=== PATIENT | female | born 1945 | race Two or more races ===

== ENCOUNTER 2020-10-10 04:08 | Emergency (ER) | payer BC ==
[~2020-10-10] VITALS: Ht 175.3 cm; Wt 72.6 kg
[2020-10-10 06:06] LABS: Hematocrit 40.7 % (36.0-46.0); Hemoglobin 14.1 g/dL (12.2-16.2); Mean Corpuscular Hgb Conc. 34.7 g/dL (32.0-36.0); Mean Corpuscular Volume 89.4 fL (80.0-100.0); Red Blood Cells 4.56 10^6/uL (4.0-5.20); Red Cell Distribution Width 13.8 % (11.8-14.3); White Blood Cell 8.2 10^3/uL (4.4-10.8)
[2020-10-10 06:22] LABS: Albumin 3.9 g/dL (3.4-5.0); Amylase 72 U/L (25-115); Anion Gap 7 (5-15); Blood Urea Nitrogen 29 mg/dL (7-18); Calcium 8.8 mg/dL (8.5-10.1); Carbon Dioxide 25 mmol/L (21-32); Chloride 112 mmol/L (98-107); Glucose 113 mg/dL (74-106); Lipase 104 U/L (73-393); Magnesium 2.1 mg/dL (1.6-2.6); Partial Thromboplastin Time 22.2 sec (23.0-31.2); Potassium 3.5 mmol/L (3.5-5.1); Sodium 144 mmol/L (136-145)
[2020-10-10 06:24] LABS: Basophils % (manual) 0 (0.0-2.0); Blast Cells 0; Eosinophils % (manual) 0 (0-7); Metamyelocytes % 0; Myelocytes % 0; Promyelocytes % 0; Reactive Lymphocytes 0
[2020-10-10 06:30] LABS: Alanine Aminotransferase 29 U/L (13-56); Alkaline Phosphatase 82 U/L (45-117); Aspartate Aminotransferase 29 U/L (15-37); BUN/Creatinine Ratio 29.6; Bilirubin, Total 0.8 mg/dL (0.2-1.0); GFR African American 71 mL/min; GFR Non-African American 59 mL/min; Total Protein 7.1 g/dL (6.4-8.2)
[2020-10-10] MEDS ORDERED: fentaNYL CITRATE 100 MCG/2 ML VL IV ONE (06:30)
[2020-10-10] MEDS ORDERED: ONDANSETRON HCL 4 MG/2 ML VIAL IV ONE (06:30)
[2020-10-10 07:04] LABS: Band Neutrophils % (manual) 3; Lymphocytes % (manual) 4 (10.0-50.0); Monocytes % (manual) 2 (0-12)
[2020-10-10] MEDS ORDERED: SODIUM CHLORIDE 0.9% 1,000 ML IV ONE (07:15)
[2020-10-10 08:55] LABS: Urine Amorphous Crystal FEW /hpf (None Seen); Urine Bacteria NONE SEEN /hpf (None Seen); Urine Blood Negative /uL (Negative); Urine WBC 3 /hpf (0 - 5)
[2020-10-10 09:00] VITALS: BP 105/53
== END 2020-10-10 10:09 | disposition home or self-care (01) ==
LOC: ER 04:08 → EDBD 04:08 → ER 09:49
DX: K52.9 Noninfective gastroenteritis and colitis, unspecified (principal); K90.49 Malabsorption due to intolerance, not elsewhere classified; E11.9 Type 2 diabetes mellitus without complications; E78.5 Hyperlipidemia, unspecified; Z90.710 Acquired absence of both cervix and uterus
CPT/HCPCS: 36415; 71045; 74176; 80053; 81001; 82150; 83690; 83735; 84443; 84484; 85007; 85027; 85049; 85610; 85730; 93005; 96361; 96374; 96375; 99285; J2405; J3010; J7030

== ENCOUNTER 2020-10-18 18:18 | Inpatient (IN) | payer BC ==
[~2020-10-18] VITALS: Ht 152.4 cm; Wt 58.7 kg
[2020-10-18 19:02] LABS: Basophils # (auto) 0 10 ^3/uL (0-0.2); Basophils % (auto) 0.2 % (0.0-2.0); Eosinophils # (auto) 0 10 ^3/uL (0-0.8); Hemoglobin 13.6 g/dL (12.2-16.2); Lymphocytes # (auto) 0.8 10 ^3/uL (0.4-5.4); Lymphocytes % (auto) 5.7 % (10.0-50.0); Mean Corpuscular Hemoglobin 29.2 pg (28.0-32.0); Mean Corpuscular Hgb Conc. 33.2 g/dL (32.0-36.0); Mean Corpuscular Volume 87.9 fL (80.0-100.0); Monocytes # (auto) 0.3 10 ^3/uL (0-1.3); Monocytes % (auto) 2.5 % (0.0-12.0); Neutrophils # (auto) 12.6 10 ^3/uL (1.6-8.6); Neutrophils % (auto) 91.6 % (37.0-80.0); Red Blood Cells 4.67 10^6/uL (4.0-5.20); Red Cell Distribution Width 13.5 % (11.8-14.3); White Blood Cell 13.8 10^3/uL (4.4-10.8)
[2020-10-18 19:21] LABS: Albumin 3.4 g/dL (3.4-5.0); Calcium 9.4 mg/dL (8.5-10.1); Potassium 4.4 mmol/L (3.5-5.1)
[2020-10-18 19:24] LABS: BUN/Creatinine Ratio 20.7; Bilirubin, Total 0.8 mg/dL (0.2-1.0); Total Protein 7.2 g/dL (6.4-8.2)
[2020-10-18 19:50] LABS: INR 1.1 (0.9-1.15)
[2020-10-18] MEDS ORDERED: IOHEXOL 300 MG/ML 100ML BOTTLE IJ ONE (21:25)
[2020-10-18 22:33] LABS: Urine Bacteria FEW /hpf (None Seen); Urine Blood 1+ /uL (Negative); Urine Mucus FEW (None Seen); Urine Specific Gravity 1.026 (1.001-1.035); Urine WBC 2 /hpf (0 - 5)
[2020-10-19] MEDS ORDERED: PIPERACILLIN-TAZOB 3.375GM 100 ML IV ONE (02:00)
[2020-10-19] MEDS ORDERED: fentaNYL CITRATE 100 MCG/2 ML VL IM ONE (02:00)
[2020-10-19] MEDS ORDERED: SODIUM CHLORIDE 0.9% 1,000 ML IV ONE (02:00)
[2020-10-19] MEDS ORDERED: ONDANSETRON HCL 4 MG/2 ML VIAL IV ONE (02:00)
[2020-10-19] MEDS ORDERED: NITROGLYCERIN 0.4 MG SL TAB SL PRN (03:15)
[2020-10-19] MEDS: SODIUM CHLORIDE 0.9% 1,000 ML IV SCH ×2 (03:15→14:22)
[2020-10-19] MEDS ORDERED: MORPHINE SULFATE INJECTION 2 MG/ML SYRG IV PRN (03:15)
[2020-10-19] MEDS: MORPHINE SULFATE 4 MG/ML SYR/VIAL IV PRN (03:53)
[2020-10-19] MEDS: metroNIDAZOLE 500MG/100ML 100 ML IV SCH ×3 (06:00→22:00)
[2020-10-19] MEDS ORDERED: SUCCINYLCHOLINE CHLORIDE 20 MG/ML 10ML VIAL IV ONE (07:05)
[2020-10-19] MEDS ORDERED: LIDOCAINE 1% HCL (LOCAL ANESTH.) INJ 20ML MDV ONE (07:05)
[2020-10-19] MEDS ORDERED: ETOMIDATE (2MG/ML) 20ML VIAL IV ONE (07:15)
[2020-10-19] MEDS ORDERED: fentaNYL CITRATE 5 ML ONE (07:15)
[2020-10-19] MEDS ORDERED: fentaNYL CITRATE 100 MCG/2 ML VL ONE (07:15)
[2020-10-19] MEDS ORDERED: PROPOFOL 10 MG/ML 20 ML IV ONE (07:15)
[2020-10-19] MEDS ORDERED: ONDANSETRON HCL 4 MG/2 ML VIAL ONE (07:15)
[2020-10-19] MEDS ORDERED: SODIUM CHLORIDE LOCK 10 ML ONE (07:15)
[2020-10-19] MEDS ORDERED: HYDROmorphone HCL 2 MG/ML VL ONE (07:15)
[2020-10-19] MEDS ORDERED: MIDAZOLAM HCL 2MG/2ML 2ml VIAL (1mg/ml) ONE (07:15)
[2020-10-19] MEDS ORDERED: ROCURONIUM 10MG/ML 10ML VIAL IV ONE ×2 (07:15→08:59)
[2020-10-19] MEDS ORDERED: metroNIDAZOLE 500MG/100ML 100 ML IV ONE (07:31)
[2020-10-19] MEDS ORDERED: MORPHINE SULFATE 4 MG/ML SYR/VIAL IV PRN (07:45)
[2020-10-19] MEDS ORDERED: METOCLOPRAMIDE HCL 5MG/ml INJ 2ml VIAL IV PRN (07:45)
[2020-10-19] MEDS ORDERED: HYDROmorphone HCL 2 MG/ML VL IV PRN (07:45)
[2020-10-19] MEDS ORDERED: GLYCOPYRROLATE 0.2 MG/ML 1ML VIAL ONE (09:05)
[2020-10-19] MEDS ORDERED: NEOSTIGMINE 1 MG/ML INJ (10mg/10ML VIAL) ONE (09:05)
[2020-10-19] MEDS ORDERED: ceFAZolin 1GM VL ONE (09:23)
[2020-10-19] MEDS ORDERED: ACETAMINOPHEN IV 100 ML IV ONE (10:41)
[2020-10-19] MEDS ORDERED: ACETAMINOPHEN IV 1000 MG/100ML (10MG/ML) IV ONE (10:45)
[2020-10-19] MEDS: PANTOPRAZOLE 40 MG/10 ML VIAL INJ IV SCH (11:30)
[2020-10-19] MEDS: PIPERACILLIN-TAZOB 3.375GM 100 ML IV SCH ×3 (13:58→22:01)
[2020-10-19] MEDS ORDERED: MET500T PO (15:07)
[2020-10-19] MEDS ORDERED: LEV25T PO (15:07)
[2020-10-19] MEDS ORDERED: CIPR500T4 PO (15:07)
[2020-10-19] MEDS ORDERED: METO10TA3 PO (15:07)
[2020-10-19] MEDS ORDERED: TRAM50TA2 PO (15:07)
[2020-10-19 17:00] VITALS: BP 96/54
[2020-10-19] MEDS ORDERED: PRAV20TA3 PO (17:23)
[2020-10-19 20:00] VITALS: BP 105/61
[2020-10-19 21:47] VITALS: BP 105/61
[2020-10-20] MEDS: SODIUM CHLORIDE 0.9% 1,000 ML IV SCH ×3 (01:40→23:43)
[2020-10-20] MEDS: ONDANSETRON HCL 4 MG/2 ML VIAL IV PRN (02:29)
[2020-10-20] MEDS: MORPHINE SULFATE 4 MG/ML SYR/VIAL IV PRN ×3 (02:49→16:35)
[2020-10-20 05:11] VITALS: BP 109/60
[2020-10-20] MEDS: metroNIDAZOLE 500MG/100ML 100 ML IV SCH (05:59)
[2020-10-20] MEDS: PIPERACILLIN-TAZOB 3.375GM 100 ML IV SCH ×3 (06:18→22:20)
[2020-10-20 06:46] LABS: Basophils # (auto) 0 10 ^3/uL (0-0.2); Basophils % (auto) 0.1 % (0.0-2.0); Eosinophils # (auto) 0 10 ^3/uL (0-0.8); Hematocrit 32.7 % (36.0-46.0); Hemoglobin 11.3 g/dL (12.2-16.2); Lymphocytes # (auto) 0.9 10 ^3/uL (0.4-5.4); Lymphocytes % (auto) 6.1 % (10.0-50.0); Mean Corpuscular Hemoglobin 30.3 pg (28.0-32.0); Mean Corpuscular Hgb Conc. 34.4 g/dL (32.0-36.0); Monocytes # (auto) 0.7 10 ^3/uL (0-1.3); Monocytes % (auto) 4.6 % (0.0-12.0); Neutrophils # (auto) 13.6 10 ^3/uL (1.6-8.6); Neutrophils % (auto) 89.2 % (37.0-80.0); Red Blood Cells 3.72 10^6/uL (4.0-5.20); Red Cell Distribution Width 14.1 % (11.8-14.3); White Blood Cell 15.3 10^3/uL (4.4-10.8)
[2020-10-20 07:05] LABS: Albumin 2.3 g/dL (3.4-5.0); Calcium 7.9 mg/dL (8.5-10.1); Potassium 3.7 mmol/L (3.5-5.1)
[2020-10-20 07:09] LABS: BUN/Creatinine Ratio 26.2; Bilirubin, Total 0.5 mg/dL (0.2-1.0); Total Protein 5.5 g/dL (6.4-8.2)
[2020-10-20 09:00] VITALS: BP 108/62
[2020-10-20] MEDS: PANTOPRAZOLE 40 MG/10 ML VIAL INJ IV SCH (10:33)
[2020-10-20 13:00] VITALS: BP 111/62
[2020-10-20 17:00] VITALS: BP 120/67
[2020-10-20 20:00] VITALS: BP 125/67
[2020-10-21] MEDS: MORPHINE SULFATE 4 MG/ML SYR/VIAL IV PRN (01:42)
[2020-10-21 05:00] VITALS: BP 122/69
[2020-10-21] MEDS: PIPERACILLIN-TAZOB 3.375GM 100 ML IV SCH ×3 (06:00→22:13)
[2020-10-21 09:00] VITALS: BP 125/66
[2020-10-21] MEDS: PANTOPRAZOLE 40 MG/10 ML VIAL INJ IV SCH (10:05)
[2020-10-21 13:00] VITALS: BP 125/66
[2020-10-21] MEDS: SODIUM CHLORIDE 0.9% 1,000 ML IV SCH ×2 (14:09→21:57)
[2020-10-21 17:00] VITALS: BP 127/69
[2020-10-21 22:00] VITALS: BP 136/71
[2020-10-22 05:00] VITALS: BP 131/71
[2020-10-22] MEDS: PIPERACILLIN-TAZOB 3.375GM 100 ML IV SCH ×3 (06:00→22:19)
[2020-10-22 06:58] LABS: Basophils # (auto) 0 10 ^3/uL (0-0.2); Basophils % (auto) 0.4 % (0.0-2.0); Eosinophils # (auto) 0.1 10 ^3/uL (0-0.8); Eosinophils % (auto) 1.2 % (0.0-7.0); Hematocrit 35.7 % (36.0-46.0); Hemoglobin 12.2 g/dL (12.2-16.2); Lymphocytes # (auto) 1.1 10 ^3/uL (0.4-5.4); Lymphocytes % (auto) 13.4 % (10.0-50.0); Mean Corpuscular Hemoglobin 29.8 pg (28.0-32.0); Mean Corpuscular Hgb Conc. 34.3 g/dL (32.0-36.0); Mean Corpuscular Volume 86.9 fL (80.0-100.0); Monocytes # (auto) 0.5 10 ^3/uL (0-1.3); Monocytes % (auto) 6.5 % (0.0-12.0); Neutrophils # (auto) 6.6 10 ^3/uL (1.6-8.6); Neutrophils % (auto) 78.5 % (37.0-80.0); Nucleated Red Blood Cells % 0.1 %; Red Blood Cells 4.11 10^6/uL (4.0-5.20); Red Cell Distribution Width 13.3 % (11.8-14.3); White Blood Cell 8.4 10^3/uL (4.4-10.8)
[2020-10-22 07:29] LABS: BUN/Creatinine Ratio 28.9; Magnesium 2.2 mg/dL (1.6-2.6)
[2020-10-22 07:34] LABS: Potassium 2.9 mmol/L (3.5-5.1)
[2020-10-22] MEDS: PANTOPRAZOLE 40 MG/10 ML VIAL INJ IV SCH (08:31)
[2020-10-22 09:00] VITALS: BP 134/70
[2020-10-22] MEDS: SODIUM CHLORIDE 0.9% 1,000 ML IV SCH ×2 (09:04→20:11)
[2020-10-22] MEDS: POTASSIUM CHL 20MEQ/100ML 100 ML IV SCH ×3 (11:13→15:55)
[2020-10-22 12:36] VITALS: BP 124/75
[2020-10-22 16:59] VITALS: BP 130/66
[2020-10-22 23:13] VITALS: BP 133/78
[2020-10-23 05:34] VITALS: BP 141/80
[2020-10-23] MEDS: PIPERACILLIN-TAZOB 3.375GM 100 ML IV SCH ×3 (05:49→21:21)
[2020-10-23 07:21] LABS: Basophils # (auto) 0.1 10 ^3/uL (0-0.2); Basophils % (auto) 0.7 % (0.0-2.0); Eosinophils # (auto) 0.2 10 ^3/uL (0-0.8); Eosinophils % (auto) 2.8 % (0.0-7.0); Hematocrit 37.5 % (36.0-46.0); Hemoglobin 12.5 g/dL (12.2-16.2); Lymphocytes # (auto) 1.1 10 ^3/uL (0.4-5.4); Lymphocytes % (auto) 14.7 % (10.0-50.0); Mean Corpuscular Hemoglobin 29.2 pg (28.0-32.0); Mean Corpuscular Hgb Conc. 33.4 g/dL (32.0-36.0); Mean Corpuscular Volume 87.6 fL (80.0-100.0); Monocytes # (auto) 0.5 10 ^3/uL (0-1.3); Monocytes % (auto) 7.3 % (0.0-12.0); Neutrophils # (auto) 5.5 10 ^3/uL (1.6-8.6); Neutrophils % (auto) 74.5 % (37.0-80.0); Red Blood Cells 4.28 10^6/uL (4.0-5.20); Red Cell Distribution Width 13.4 % (11.8-14.3); White Blood Cell 7.4 10^3/uL (4.4-10.8)
[2020-10-23 07:43] LABS: Potassium 3.3 mmol/L (3.5-5.1)
[2020-10-23 07:45] LABS: BUN/Creatinine Ratio 25.6; Magnesium 2.2 mg/dL (1.6-2.6)
[2020-10-23 09:00] VITALS: BP 142/77
[2020-10-23] MEDS: SODIUM CHLORIDE 0.9% 1,000 ML IV SCH ×2 (10:50→18:47)
[2020-10-23] MEDS: PANTOPRAZOLE 40 MG/10 ML VIAL INJ IV SCH (10:50)
[2020-10-23] MEDS ORDERED: POTASSIUM CHL 20MEQ/100ML 100 ML IV ONE (11:00)
[2020-10-23 13:00] VITALS: BP 123/68
[2020-10-23 16:43] VITALS: BP 125/77
[2020-10-23 22:00] VITALS: BP 112/69
[2020-10-24 05:00] VITALS: BP 113/71
[2020-10-24] MEDS: SODIUM CHLORIDE 0.9% 1,000 ML IV SCH ×3 (05:32→15:46)
[2020-10-24] MEDS: PIPERACILLIN-TAZOB 3.375GM 100 ML IV SCH ×3 (05:59→22:16)
[2020-10-24 07:00] LABS: Basophils # (auto) 0.1 10 ^3/uL (0-0.2); Basophils % (auto) 0.9 % (0.0-2.0); Eosinophils # (auto) 0.3 10 ^3/uL (0-0.8); Eosinophils % (auto) 4.2 % (0.0-7.0); Hematocrit 36.6 % (36.0-46.0); Hemoglobin 12.5 g/dL (12.2-16.2); Lymphocytes # (auto) 1.2 10 ^3/uL (0.4-5.4); Lymphocytes % (auto) 16.3 % (10.0-50.0); Mean Corpuscular Hemoglobin 29.6 pg (28.0-32.0); Mean Corpuscular Hgb Conc. 34.3 g/dL (32.0-36.0); Mean Corpuscular Volume 86.5 fL (80.0-100.0); Monocytes # (auto) 0.7 10 ^3/uL (0-1.3); Monocytes % (auto) 9.2 % (0.0-12.0); Neutrophils # (auto) 5.3 10 ^3/uL (1.6-8.6); Neutrophils % (auto) 69.4 % (37.0-80.0); Red Blood Cells 4.23 10^6/uL (4.0-5.20); Red Cell Distribution Width 13.5 % (11.8-14.3); White Blood Cell 7.6 10^3/uL (4.4-10.8)
[2020-10-24 07:22] LABS: Magnesium 2.2 mg/dL (1.6-2.6); Potassium 3.5 mmol/L (3.5-5.1)
[2020-10-24 07:24] LABS: BUN/Creatinine Ratio 21.8
[2020-10-24 09:00] VITALS: BP 112/71
[2020-10-24] MEDS: PANTOPRAZOLE 40 MG/10 ML VIAL INJ IV SCH (09:41)
[2020-10-24 13:00] VITALS: BP 110/65
[2020-10-24 17:00] VITALS: BP 120/58
[2020-10-24 22:30] VITALS: BP 109/65
[2020-10-24] MEDS ORDERED: TEMAZEPAM 15 MG CAP PO ONE (22:30)
[2020-10-25] MEDS: SODIUM CHLORIDE 0.9% 1,000 ML IV SCH ×2 (03:46→12:56)
[2020-10-25 05:30] VITALS: BP 116/69
[2020-10-25] MEDS: PIPERACILLIN-TAZOB 3.375GM 100 ML IV SCH ×2 (06:27→13:00)
[2020-10-25 09:00] VITALS: BP 113/66
[2020-10-25] MEDS: PANTOPRAZOLE 40 MG/10 ML VIAL INJ IV SCH (09:29)
[2020-10-25 13:00] VITALS: BP 111/62
[2020-10-25 17:00] VITALS: BP 104/56
[2020-10-25] MEDS: ENOXAPARIN SOD 40 MG/0.4 ML SYRINGE SC SCH (20:40)
[2020-10-25 23:11] VITALS: BP 112/69
[2020-10-26] MEDS: SODIUM CHLORIDE 0.9% 1,000 ML IV SCH (02:37)
[2020-10-26] MEDS: ONDANSETRON HCL 4 MG/2 ML VIAL IV PRN (02:47)
[2020-10-26] MEDS: MORPHINE SULFATE 4 MG/ML SYR/VIAL IV PRN (02:48)
[2020-10-26 05:20] VITALS: BP 100/55
[2020-10-26 05:52] LABS: Basophils # (auto) 0.1 10 ^3/uL (0-0.2); Basophils % (auto) 1.1 % (0.0-2.0); Eosinophils # (auto) 0.3 10 ^3/uL (0-0.8); Eosinophils % (auto) 4.1 % (0.0-7.0); Hemoglobin 11.2 g/dL (12.2-16.2); Lymphocytes # (auto) 1.7 10 ^3/uL (0.4-5.4); Lymphocytes % (auto) 23.4 % (10.0-50.0); Mean Corpuscular Hemoglobin 30.2 pg (28.0-32.0); Mean Corpuscular Hgb Conc. 34.8 g/dL (32.0-36.0); Mean Corpuscular Volume 86.7 fL (80.0-100.0); Monocytes # (auto) 0.8 10 ^3/uL (0-1.3); Monocytes % (auto) 10.7 % (0.0-12.0); Neutrophils # (auto) 4.4 10 ^3/uL (1.6-8.6); Neutrophils % (auto) 60.7 % (37.0-80.0); Red Cell Distribution Width 13.7 % (11.8-14.3); White Blood Cell 7.2 10^3/uL (4.4-10.8)
[2020-10-26 06:21] LABS: Potassium 3.6 mmol/L (3.5-5.1)
[2020-10-26 06:28] LABS: BUN/Creatinine Ratio 17.4; Magnesium 2.2 mg/dL (1.6-2.6)
[2020-10-26 08:30] VITALS: BP 112/80
[2020-10-26] MEDS: ENOXAPARIN SOD 40 MG/0.4 ML SYRINGE SC SCH (09:04)
[2020-10-26] MEDS: PANTOPRAZOLE 40 MG/10 ML VIAL INJ IV SCH (09:04)
[2020-10-26 12:30] VITALS: BP 110/80
== END 2020-10-26 13:20 | disposition home health service (06) | DRG 329 ==
LOC: ER 18:20 → OVERFLOW 10-19 03:08 → TELE-WESTW 10-19 13:21
PROVIDERS: ADMIT Nurse Practitioner; ATTEND Internal Medicine
PROC: 0D1M0Z4 Bypass Descending Colon to Cutaneous, Open Approach (ICD-10-PCS; 2020-10-19)
PROC: 0W9G0ZZ Drainage of Peritoneal Cavity, Open Approach (ICD-10-PCS; 2020-10-19)
PROC: 0DN80ZZ Release Small Intestine, Open Approach (ICD-10-PCS; 2020-10-19)
PROC: 0DTN0ZZ Resection of Sigmoid Colon, Open Approach (ICD-10-PCS; principal; 2020-10-19 07:56)
DX: K57.20 Diverticulitis of large intestine with perforation and abscess without bleeding (principal); K65.1 Peritoneal abscess; K56.50 Intestinal adhesions [bands], unspecified as to partial versus complete obstruction; I31.3 Pericardial effusion (noninflammatory); Z20.822 Contact with and (suspected) exposure to COVID-19; E11.9 Type 2 diabetes mellitus without complications; K52.9 Noninfective gastroenteritis and colitis, unspecified; E03.9 Hypothyroidism, unspecified; E78.5 Hyperlipidemia, unspecified; E87.6 Hypokalemia; E88.09 Other disorders of plasma-protein metabolism, not elsewhere classified; K44.9 Diaphragmatic hernia without obstruction or gangrene; Z85.42 Personal history of malignant neoplasm of other parts of uterus; Z90.710 Acquired absence of both cervix and uterus; Z79.899 Other long term (current) drug therapy
CPT/HCPCS: 36415; 71045; 74177; 80048; 80053; 81001; 83605; 83690; 83735; 85025; 85610; 86850; 86900; 86901; 87040; 87426; 93005; 96365; 96366; 96372; 96375; 97110; 97116; 97163; 97530; C9113; G0378; J0131; J0330; J0690; J2001; J2250; J2405; J2543; J2704; J3480; J3490

== ENCOUNTER 2024-02-18 18:43 | Emergency (ER) | payer BC ==
[~2024-02-18] VITALS: Ht 152.4 cm; Wt 51.0 kg
[~2024-02-18 18:43] MED LIST: LEV25T PO; METO10TA3 PO; PRAV20TA3 PO
[2024-02-18] MEDS ORDERED: ACET500T58 PO (21:17)
[2024-02-18] MEDS ORDERED: AMOX875T4 PO (21:17)
--- NOTE | 2024-02-18 21:17 | ED.PDOC ---
History of Present Illness(SKN HPI Comments 78-year-old female presents to ER with complaints of cat bite to right hand x1 day. Patient reports that her cat who is not up-to-date on vaccines bit her on her right hand this morning and has since been experiencing pain/swelling/redness localized to cat bite of right hand. She reports 8/10 pain to right hand. Denies use of medications for current symptoms. States she is unsure when her last tetanus shot was and presents to ER ambulatory on arrival, with steady gait, in no distress. Denies fever, body aches, chills, b leeding/skin drainage, wrist pain or any further symptoms/complaints Chief Complaint: Animal Bite Time Seen by MD: 19:11 Primary Care Provider: none History of Present Illness: Nurses Notes, Medications, Allergies Allergies: Coded Allergies: NO KNOWN ALLERGIES (Unverified , 10/10/20) Home Meds Active Scripts Amoxicillin & Pot Clavulanate (Amoxicillin/Potassium Cla) 875 Mg Tab, 1 TAB PO BID for 7 Days, #14 TAB 0 Refills Prov:ISABEL CHACKO 02/18/24 Acetaminophen (Acetaminophen) 500 Mg Tab, 500 MG PO Q4HPRN, #30 TAB 0 Refills Prov:ISABEL CHACKO 02/18/24 Reported Medications Pravastatin Sodium (PRAVACHOL TABLET) 20 Mg Tb, 1 TAB PO DAILY, #30 TAB 5 Refills 10/19/20 Levothyroxine Sodium (Levothyroxine Sodium) 25 Mcg Tab, 1 TAB PO QAM 10/19/20 Metoclopramide Hcl (Metoclopramide Hcl) 10 Mg Tab, 1 TAB PO BID 10/19/20 Information Source: Patient Mode of Arrival: Ambulatory Tetanus: Unknown Past Medical History PAST MEDICAL HISTORY: DM, High Lipids, Thyroid, UTI'S Surgical History: Hysterectomy [employer] History: Endometrial Cancer, Endometriosis Family History Family History: Unknown Social History Smoker: Non-Smoker Alcohol: Denies ETOH Use Drugs: Denies Drug Use Lives In: Home Constitutional: denies: chills, diaphoresis, fatigue, fever, malaise, sweats, weakness, others EENTM: denies: blurred vision, double vision, ear bleeding, ear discharge, ear drainage, ear pain, ear ringing, eye pain, eye redness, hearing loss, mouth pain, mouth swelling, nasal discharge, nose bleeding, nose congestion, nose pain, photophobia, tearing, throat pain, throat swelling, voice changes, others Respiratory: denies: cough, hemoptysis, orthopnea, SOB at rest, shortness of breath, SOB with excertion, stridor, wheezing, others Cardiovascular: denies: chest pain, dizzy spells, diaphoresis, Dyspnea on exertion, edema, irregular heart beat, left arm pain, lightheadedness, palpitations, PND, syncope, others Gastrointestinal: denies: abdomen distended, abdominal pain, blood streaked bowels, constipated, diarrhea, dysphagia, difficulty swallowing, hematemesis, melena, nausea, poor appetite, poor fluid intake, rectal bleeding, rectal pain, vomiting, others Genitourinary: denies: abnormal vagina bleeding, burning, dyspareunia, dysuria, flank pain, frequency, hematuria, incontinence, pain, , vagina discharge, urgency, others Neurological: denies: dizziness, fainting, headache, left sided numbness, left sided weakness, numbness, paresthesia, pre-existing deficit, right sided numbness, right sided weakness, seizure, speech problems, tingling, tremors, weakness, others Musculoskeletal: denies: back pain, gout, joint pain, joint swelling, muscle pain, muscle stiffness, neck pain, others Integumetry: reports: others (As stated in HPI) Allergic/Immunocompromised: denies: Difficulty Healing, Frequent Infections, Hives, Itching, others Hematologic/Lymphatic: denies: anemia, blood clots, easy bleeding, easy bruising, swollen glands, others Endocrine: denies: excessive hunger, excessive sweating, excessive thirst, excessive urination, flushing, intolerance to cold, intolerance to heat, unexplained weight gain, unexplained weight loss, others Psychiatric: denies: anxiety, bipolar disorder, depression, hopeless, panic disorder, schizophrenia, sleepless, suicidal, others Physical Exam General Appearance: No Apparent Distress HEENT: PERRL/EOMI Neck: Full Range of Motion, Non-Tender, Normal Respiratory: Chest Non-Tender, Lungs Clear, No Accessory Muscle Use, No Respiratory Distress, Normal Breath Sounds Cardiovascular: No Murmur, No Gallop, Regular Rate/Rhythm Breast Exam: Deferred Gastrointestinal: NOT DONE Genitalia: Deferred Pelvic: Deferred Rectal: Deferred Extremities: Normal capillary refill, Normal range of motion Neurologic: Alert, crane helper II-XII nml as Tested, No Motor Deficits, Normal Affect, Normal Mood, No Sensory Deficits Cerebellar Function: Normal Reflexes: Normal Skin: Dry, Warm Lymphatic: No Adenopathy Was a procedure done? Was a procedure done?: No Sedation Sedation?: No Images 1 - 2 puncture del valle <.5 cm in size noted to dorsal surface of right hand with mild swelling/erythema/TTP. No red streaking/drainage/fluctuance noted. No TTP to right wrist noted Differential Diagnosis (INTG) Differential Diagnosis: Abscess Differential Diagnosis: Open Fracture, Retained Foreign Body X-Ray, Labs, Meds, VS Vital Signs Date Time Temp Pulse Resp B/P (MAP) Pulse Ox O2 Delivery O2 Flow Rate FiO2 02/18/24 21: 78 12 98 Room Air 02/18/24 21:22 97.9 98 12 103/61 (75) 98 97.9 02/18/24 19:06 99.1 82 19 162/92 (115) 97 Current Medications Medications (Trade) Dose Ordered Sig/Kaiden Route Start Time Stop Time Status Last Admin Acetaminophen/ Codeine Phosphate (Tylenol W/Cod #3 Tablet) 1 tab ONCE ONCE PO 02/18/24 21:15 02/18/24 21:16 DC 02/18/24 21:43 Ondansetron HCl (Zofran Po) 4 mg ONCE ONCE PO 02/18/24 21:15 02/18/24 21:16 DC 02/18/24 21:43 Clindamycin Phosphate 50 ml @ 50 mls/hr ONCE ONCE IV 02/18/24 21:15 02/18/24 22:14 DC 02/18/24 21:42 Diphtheria/ Tetanus/Acell Pertussis (Boostrix T-Dap) 0.5 ml ONCE ONCE IM 02/18/24 21:15 02/18/24 21:26 DC 02/18/24 21:42 PATIENT: MYRA PARSONS V ACCT: [id number] UNIT: [id number] : 1945 LOC: ER ROOM / BED: / AGE / SEX: 78 / F ADM STATUS: REG ER SERVICE 08 ORDERING PHYSICIAN: ISABEL CHACKO PROCEDURE(s): RHAN - R HAND 3 VIEW XRAY REASON: right hand pain ORDER NUMBER(s): [id number], ACCESSION NUMBER(s): [id number] CLINICAL INDICATION: right hand pain TECHNIQUE: XY R HAND 3 VIEW XRAY Comparison: None FINDINGS/IMPRESSION: There is no evidence of acute fracture or dislocation. Moderate degenerative changes involving the interphalangeal joints. The alignment is anatomical. There is no radiopaque foreign body. ATED BY: EBA CHRISTENSEN DO DICTATED DATE/TIME: 02/18/242242 SIGNED BY: BEA CHRISTENSEN DO SIGNED DATE/TIME: 02/18/242242 CC: Right hand x-ray reviewed Patient neurovascularly intact Hep-Lock IV ordered Clindamycin 600 mg IV ordered Tdap 0.5 mL IM ordered Tylenol # 3 one tablet p.o. ordered Zofran 4 mg p.o. ordered Wound cleaning performed at bedside Wound care/cleaning discussed and advised Advised on rest/ no strenuous activity and elevation Advised to f/u in 2 days for wound check Advised to follow up with PCP in 1-2 days Patient verbalized understanding and agreeable with current plan of care Advised to return to ER immediately if symptoms worsen Images Reviewed?: Images reviewed and evaluated by me Time of 1ST Reevaluation: 20:44 Reevaluation 1ST: N/A Patient Education/Counseling: Diagnosis, Treatment, Prognosis, Need For Follow Up Family Education/Counseling: Diagnosis, Treatment, Prognosis, Need For Follow Up Departure 1 Departure Time of Disposition: 21:12 Impression: Primary Impression: Cat bite of right hand Qualified Codes: S61.451A - Open bite of right hand, initial encounter; W55.01XA - Bitten by cat, initial encounter Additional Impression: Cellulitis of right hand Disposition: 01 HOME / SELF CARE / HOMELESS Condition: Stable e-Prescriptions Amoxicillin & Pot Clavulanate (Amoxicillin/Potassium Cla) 875 Mg Tab 1 TAB PO BID for 7 Days, #14 TAB 0 Refills Prov: ISABEL CHACKO 02/18/24 Acetaminophen (Acetaminophen) 500 Mg Tab 500 MG PO Q4HPRN, #30 TAB 0 Refills Prov: ISABEL CHACKO 02/18/24 Critical Care Note Critical Care Time?: No Stability Stability form required: No Heart Score Heart Score: Heart Score Response (Comments) Value History N/A 0 EKG N/A 0 Age N/A 0 Risk Factors N/A 0 Troponin N/A 0 Total 0 ISABEL CHACKO Feb 18, 2024 21:17
[2024-02-18 21:22] VITALS: BP 103/61; PULSE 78; RESP 12; TEMP 97.9; O2SAT 98
[2024-02-18] MEDS: CLINDAMYCIN 600MG IV 50 ML IV ONE (21:42)
[2024-02-18] MEDS: TETANUS-DIPTH-ACEL PERTUSSIS 0.5ML SYR Tdap IM ONE (21:42)
[2024-02-18] MEDS: ONDANSETRON ODT 4 MG TAB PO ONE (21:43)
[2024-02-18] MEDS: ACETAMINOPHEN/CODEINE#3 (300/30mg) TAB PO ONE (21:43)
--- NOTE | 2024-02-18 22:45 | DVH ---
CLINICAL INDICATION: right hand pain TECHNIQUE: XY R HAND 3 VIEW XRAY Comparison: None FINDINGS/IMPRESSION: There is no evidence of acute fracture or dislocation. Moderate degenerative changes involving the interphalangeal joints. The alignment is anatomical. There is no radiopaque foreign body.
== END 2024-02-18 23:01 | disposition home or self-care (01) ==
LOC: ER 18:43
DX: S61.451A Open bite of right hand, initial encounter (principal); L03.113 Cellulitis of right upper limb; E11.9 Type 2 diabetes mellitus without complications; E78.5 Hyperlipidemia, unspecified; Z90.710 Acquired absence of both cervix and uterus; Z79.899 Other long term (current) drug therapy; W55.01XA Bitten by cat, initial encounter; Y93.89 Activity, other specified; Y92.89 Other specified places as the place of occurrence of the external cause; Y99.8 Other external cause status
CPT/HCPCS: 73130; 90471; 90715; 96365; 99284; J3490; Q0162